=== PATIENT | female | born 1945 | race Caucasian/White ===

== ENCOUNTER 2022-05-07 07:25 | Emergency (ER) | payer MEDICARE, SELFPAY ==
[2022-05-07] VITALS (12 sets, daily range): BP systolic 123–164; BP diastolic 76–128; PULSE 70–85; RESP 15–21; TEMP 36.8; O2SAT 98–100
--- NOTE | ~2022-05-07 | CT_ITS ---
EXAMINATION: CT brain wo con DATE: 05/07/2022 08:07 INDICATION: Altered mental status. TECHNIQUE: Computed tomography (CT) of the head was performed without intravenous contrast. The mA wa s adjusted according to patient size. Iterative reconstruction technique was employed. The dose-lengt h product was 605.33 mGy-cm. COMPARISON: None FINDINGS: There is a small old infarct in right cerebellum. There is a 2.2 cm mass in left parietal o ccipital region with surrounding vasogenic edema. There is an old infarct in the right basal ganglia. There are scattered areas of low attenuation in the cerebral white matter. There is mild mucosal thi ckening in the paranasal sinuses. There is sclerosis of the shelley of left sphenoid sinus, consistent with chronic sinusitis. The mastoid air cells are normal. There are likely changes of ocular lens rep lacement surgeries. IMPRESSION: 1. 2.2 cm mass in left parietal occipital region, consistent with metastatic disease versus glioblast oz. 2. 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 3. Mild nonspecific cerebral white matter disease, which likely represents chronic small vessel ische lars disease. Reviewed, dictated and finalized at location A. IMPRESSION: 1. 2.2 cm mass in left parietal occipital region, consistent with metastatic di sease versus glioblastoma. 2. 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 3. Mild nonspecific cerebral white matter disease, which likely represents dry house tender perla small vessel ischemic disease.
--- NOTE | ~2022-05-07 | XR_ITS ---
EXAMINATION: XR chest 2V DATE: 05/07/2022 08:58 INDICATION: Confusion. TECHNIQUE: Frontal and lateral views of the chest were obtained. COMPARISON: None. FINDINGS: There is a mass in left lung lower lobe. No pleural effusion or pneumothorax. The heart siz e is normal. IMPRESSION: 1. Mass in left lung lower lobe, consistent with primary bronchogenic carcinoma. Chest CT is recommen ded. Reviewed, dictated and finalized at location A. IMPRESSION: 1. Mass in left lung lower lobe, consistent with primary bronchogenic carcinoma . Chest CT is recommended.
--- NOTE | ~2022-05-07 | CT_ITS ---
EXAMINATION:CT diagnostic chest w con DATE: 05/07/2022 09:39 INDICATION: Lung mass. TECHNIQUE: Computed tomography (CT) of the chest was performed with 75 mL Omnipaque 300 intravenous c ontrast. Automated exposure control and iterative reconstruction technique were employed. The dose-le ngth product (DLP) was 138.80 mGy-cm. COMPARISON: Chest 2 views 05/07/2022 FINDINGS: There is mild scarring at the lung apices. There is mild atelectasis bilaterally. There is a 5.2 x 4.5 cm mass in left lung lower lobe. There is a 4 mm nodule in left lower lobe. Calcified pul monary nodules and calcified right hilar lymph nodes are consistent with old granulomatous disease. T here are no pathologically enlarged lymph nodes. There is cortical thinning of the kidneys. 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 There is moderate thoracic spondylosis. IMPRESSION: 1. 5.2 x 4.5 cm mass in left lung lower lobe, consistent with primary bronchogenic carcinoma. CT-guid ed biopsy is recommended. 2. 4 mm nodule in left lung lower lobe, which may be granulomatous disease or metastatic disease. Reviewed, dictated and finalized at location A. IMPRESSION: 1. 5.2 x 4.5 cm mass in left lung lower lobe, consistent with primary bronchoge perla carcinoma. CT-guided biopsy is recommended. 2. 4 mm nodule in left lung lower lobe, which may be granulomatous disease or m etastatic disease.
--- NOTE | 2022-05-07 07:36 | PC.NURSE ---
pt comes in today with daughter with increased confusion and forgetful since 3 months. Daughter states she was sick and since she has noted downhill in patient memory.
--- NOTE | 2022-05-07 07:52 | ECG_ITS ---
Measurements Intervals [place] Rate: 68 P: 52 HI: 189 QRS: -13 QRSD: 91 T: 6 QT: 329 QTc: 351 Interpretive Statements SINUS RHYTHM INCOMPLETE RIGHT BUNDLE BRANCH BLOCK BORDERLINE T WAVE ABNORMALITY- ANT/INF LEADS BASELINE ARTIFACT- I, II, III, AVR, V1 BORDERLINE ECG Electronically Signed On 05-07-2022 8:33:30 CDT by Johnny Dias D.O.
--- NOTE | 2022-05-07 07:53 | ED.GENADULT ---
HPI - General Adult General Chief complaint: Neuro Symptoms/Deficit Stated complaint: confusion Time Seen by Provider: 05/07/22 07:42 History of Present Illness HPI narrative: 76-year-old female presents emergency room accompanied by her daughter. She comes in secondary to some degree of confusion. This has been going on for approximately 1-1/2 months and she is already seen her primary care physician has a referral to be seen at [facility] by their department neurology. The appointment is scheduled in the future. Examples of today is that she was looking for her phone which was sitting right beside her. She was looking for the light switch which was right in front of her. She has problems and finding the words in order to articulate what she is seeing or thinking. She has no focal weakness to her arms or legs. She is able ambulate with any difficulty. She not have any slurred speech is just trying to find the right words to come out. It seems that is gotten worse here lately so they came emergency room for evaluation. She denies any chest pain or shortness of breath. No cough congestion. No chills or fevers. Related Data Home Medications Medication Instructions Recorded Confirmed bimatoprost 0.01 % eye drops 2 drop ophthalmic (eye) DAILY 10/13/19 05/04/22 (Shin) Allergies Allergy/AdvReac Type Severity Reaction Status Date / Time No Known Allergies Allergy Verified 05/04/22 11:24 Review of Systems Review of Systems: CONSTITUTIONAL: Denies fever, chills, or sweats. EYES: Denies visual changes, redness, or discharge. ENT: Denies rhinorrhea, congestion, sore throat, or otalgia. CARDIOVASCULAR: Denies chest pain, palpitations, or edema. RESPIRATORY: Denies cough or dyspnea. GASTROINTESTINAL: Denies abdominal pain, nausea, vomiting, or diarrhea. GENITOURINARY: Denies dysuria or hematuria. SKIN: Denies rash or itching. MUSCULOSKELETAL: Denies back pain, joint pain, or myalgia. NEUROLOGIC: Denies headache, numbness, or weakness. As per HPI problems with her memory PSYCHIATRIC: Denies anxiety or depression. FOR[facility]LY [facility] Past Medical History Medical History Essential (primary) hypertension Glaucoma Memory loss Other hyperlipidemia Family History Family History Other Cerebrovascular accident Diabetes mellitus Family history of malignant neoplasm of breast in first degree relative Social History Social History Smoking status: Never smoker Second hand tobacco smoke exposure: No Alcohol intake: current Substance use: never Substance use type: does not use Gender identity (if verbalized by the patient): Female Sexual Orientation (if Verbalized by the Patient): Straight or Heterosexual Spiritual care concerns: No Agree to blood products: Yes Exam Narrative: APPEARANCE: Well appearing, no pain or distress, well-nourished. Head normocephalic and atraumatic. EYES: PERRLA/EOMI, conjunctivae very clear. NOSE: Normal with no drainage EARS:TMS clear Radha Davis, with good light reflex. THROAT: Pharynx clear, no exudate. NECK: Supple. No adenopathy, no masses. RESPIRATORY: Airway patent, respirations nonlabored. Clear to auscultation bilaterally, no rales, rhonchi, wheezing. CARDIOVASCULAR: Regular rate and rhythm without murmurs, rubs, or gallops. ABDOMINAL: Soft, nontender, nondistended, no hepatosplenomegaly Musculoskeletal: Moves all extremities. Strength/ROM intact, No edema, No calf tenderness. NEURO: Alert. Cranial nerves II through XII intact. Normal gait. Good coordination. Nonfocal examination. Patient can recall her birthdate. She knows her address. She knows where she was born. SKIN:: Warm, dry. Normal Color PSYCHIATRIC: Normal affect/mood, normal interaction Course Vital Signs Vital signs: Vital Signs Temper
[2022-05-07 07:57] LABS: Basophils Absolute Auto 0.1 K/mm3 (0.0-0.1); Basophils Percent Auto 0.5 % (0.2-1.2); Eosinophils Absolute Auto 0.1 K/mm3 (0-0.3); Eosinophils Percent Auto 1.1 % (0-4.4); Hematocrit 39.7 % (37.0-47.0); Immature Granulocyte Absolute 0.04 K/mm3 (0.00-0.031); Immature Granulocyte Percent A 0.4 % (0-0.5); Lymphocytes Absolute Auto 1.86 K/mm3 (0.9-3.2); Lymphocytes Percent Auto 19.6 % (18.3-44.2); Mean Corpuscular HGB Conc 35.3 g/dl (32-36); Mean Corpuscular Hemoglobin 30.4 pg (26-34); Mean Corpuscular Volume 86.3 fl (80-100); Mean Platelet Volume 8.9 fl (7.4-10.4); Monocytes Absolute Auto 0.8 K/mm3 (0.1-0.6); Monocytes Percent Auto 8.9 % (2.6-8.5); Neutrophils Absolute Auto 6.6 K/mm3 (1.3-6.7); Neutrophils Percent Auto 69.5 % (45.5-73.1); Platelet Count Result 444 k/mm3 (150-375); Red Cell Distribution Width 12.2 % (11.5-14.5); White Blood Count 9.5 K/mm3 (4.5-10.0)
[2022-05-07 08:08] LABS: Alanine Aminotransferase 17 U/L (6-35); Albumin Level 4.6 g/dL (3.5-5.1); Alkaline Phosphatase 93 U/L (38-126); Anion Gap 11 mmol/L (8-16); Aspartate Amino Transferase 28 U/L (14-36); Bilirubin,Total 0.8 mg/dL (0.2-1.3); Blood Urea Nitrogen 10 mg/dL (7-17); Calcium 9.7 mg/dL (8.4-10.2); Carbon Dioxide 27 mmol/L (22-30); Chloride 89 mmol/L (98-107); Estimated CRCL calculation 65 ml/min; Estimated Glomerular Filt Rate > 60; Glucose 113 mg/dL (65-110); Sodium 127 mmol/L (137-145)
[2022-05-07 08:54] LABS: Appearance Urine Clear (Clear); Bilirubin Urine Negative (Negative); Blood Urine Negative (Negative); Color Urine Yellow (Yellow); Glucose Urine UA Negative (Negative); Ketones Urine Negative (Negative); Leukocyte Esterase Ur Negative LEU/UL (Negative); Nitrate Urine Negative (Negative); Protein Urine Negative (Negative); Specific Grav Ur 1.015 (1.001-1.035); Urobilinogen Urine 0.2 mg/dL (<2.0)
[2022-05-07] MEDS: POTASSIUM CHLORIDE 20 MEQ PACKET (FOR LIQUID) 40 MEQ PO (09:02)
[2022-05-07 09:04] LABS: Add Urine Microscopic? NO
== END 2022-05-07 10:45 | disposition home or self-care (01) ==
PROVIDERS: Emergency Provider Emergency Medicine; PCP Family Medicine
DX: R91.8 Other nonspecific abnormal finding of lung field (principal); G93.89 Other specified disorders of brain; I10 Essential (primary) hypertension; H40.9 Unspecified glaucoma; E78.49 Other hyperlipidemia; I45.10 Unspecified right bundle-branch block; R94.31 Abnormal electrocardiogram [ECG] [EKG]
CPT/HCPCS: 36415; 70450; 71046; 71260; 80053; 81003; 85025; 93005; 99284; A9270; Q9967

== ENCOUNTER 2022-05-15 11:53 | Outpatient (CLI) | payer MEDICARE, SELFPAY ==
--- NOTE | ~2022-05-15 | MR_ITS ---
EXAMINATION: MR brain/brain stem wo/w con DATE: 05/15/2022 12:34 INDICATION: Brain mass. TECHNIQUE: Magnetic resonance imaging (MRI) of the brain and brainstem was performed without and with 12 mL MultiHance intravenous contrast. COMPARISON: Head CT 05/07/2022 FINDINGS: There are scattered areas of nonspecific increased T2-weighted signal intensity in the cere bral white matter and izabela. There is an old infarct in right cerebellum. There is a 2.0 cm mass in le ft proximal region with surrounding vasogenic edema. There is no acute ischemic infarct or intracrani al hemorrhage. The ventricles are normal in size. There is mild mucosal thickening in sphenoid sinus. There are likely changes of ocular lens replacement surgeries. The mastoid air cells are normal. IMPRESSION: 1. 2.0 cm enhancing mass in left parietal occipital region, consistent with metastatic disease. 2. Old infarct in right cerebellum. 3. Mild nonspecific cerebral white matter disease, which likely represents chronic small vessel ische lars disease. Reviewed, dictated and finalized at location A. IMPRESSION: 1. 2.0 cm enhancing mass in left parietal occipital region, consistent with met astatic disease. 2. Old infarct in right cerebellum. 3. Mild nonspecific cerebral white matter disease, which likely represents port patrol officer perla small vessel ischemic disease.
== END 2022-05-15 11:54 | disposition home or self-care (01) ==
PROVIDERS: PCP Family Medicine; Visit Provider Internal Medicine Hematology & Oncology
DX: G93.89 Other specified disorders of brain (principal); R93.0 Abnormal findings on diagnostic imaging of skull and head, not elsewhere classified
CPT/HCPCS: 70553; A9577

== ENCOUNTER 2022-05-16 01:50 | Outpatient (CLI) | payer MEDICARE, SELFPAY ==
[2022-05-10 11:39] VITALS: BMI 21.0
--- NOTE | 2022-05-14 09:53 | PC.NURSE ---
Pre Radiology instructions Report to the Outpatient Waiting Room, entrance under the green pavilion located off [facility], at time __0900 on date __05/16/22 . Procedure Time: ___1100 . One visitor will be allowed to accompany the patient into the hospital. The visitor will be instructed to remain with patient at all times or leave the building. We will allow the visitor to come back to the postoperative area when patient is ready. You and your visitor will be asked a series of questions to screen for COVID 19 for your protection. A mask is required within the hospital. Patients are to have no food or drink 6 hours prior to procedure time Driving will be restricted after the procedure, you must have a person to drive you home. Labs will be drawn in preop area and once reviewed, you will be taken to radiology area for procedure. When the procedure is completed, you will be taken to outpatient where you will be monitored for several hours. You may have one visitor in this area. Other than holding anti-coagulants, patient may take other medication(s) as scheduled. Prior to your appointment date patients are instructed to hold anti-coagulants after discussing with ordering provider to stop. If unable to discontinue anti-coagulants please notify radiologist. No aspirin or warfarin (Coumadin) for 7 days prior to the procedure. No clopidogrel (Plavix), ticagrelor (Brilinta), prasugrel (Effient) or dabigatran (Pradaxa) for 5 days prior to the procedure. No rivaroxaban (Xarelto), apixaban (Eliquis), dipyridamole (Aggrenox or Persantine) or cilostazol (Pletal) for 2 days prior to the procedure. Medications to discontinue per physician: ASP STOPPED 05/08/22 Date to take last dose: Please leave all valuables, including medications, at home the day of procedure. The hospital will not accept responsibility for valuables. Wear comfortable, loose fitting clothing. Follow any additional instructions given to you from ordering provider. Telephone instructions given to ____PT and asked if any additional questions and then verbalized understanding. Patient advised to call scheduling provider office or registration scheduling [phone] if any additional questions.
[2022-05-16] VITALS (13 sets, daily range): BP systolic 126–150; BP diastolic 67–96; PULSE 58–76; RESP 14–18; TEMP 36.2; O2SAT 98–100
--- NOTE | ~2022-05-16 | XR_ITS ---
EXAMINATION: XR chest 1V portable DATE: 05/16/2022 12:04 INDICATION: Left lung mass status post percutaneous biopsy. TECHNIQUE: A single frontal view of the chest was obtained. COMPARISON: Chest single view at 11:12 AM FINDINGS: There is a mass in left lung lower lobe. There is a small left pneumothorax. No pleural eff usion. The heart size is normal. IMPRESSION: 1. Left lung lower lobe mass suspicious for primary bronchogenic carcinoma. 2. Stable small left pneumothorax. Reviewed, dictated and finalized at location A.
--- NOTE | ~2022-05-16 | CT_ITS ---
. EXAMINATION: CT biopsy lung w/imaging DATE: 05/16/2022 11:10 INDICATION: Left lung mass. TECHNIQUE: The procedure including the risks, benefits, and alternatives and possibility of chest tub e placement were discussed with the patient. Risks discussed included infection, hemorrhage, approxim ately 1/3 risk of pneumothorax, approximately 1/10 risk of pneumothorax severe enough to warrant ches t tube placement, and rarely . The patient understood the risks and agreed to proceed. The patie nt was placed prone. The skin overlying the left chest was prepped and draped in sterile fashion. A nesthetic was administered with 1% lidocaine subcutaneously. A 19 gauge outer needle was advanced un barbara CT guidance to the lesion of interest. A 20 gauge core biopsy needle was then used to obtain 3 co re biopsy specimens. The needle was removed and the entry site was cleaned and dressed. The mA was ad justed according to patient size. Iterative reconstruction technique was employed. The dose-length pr oduct was 107.61 mGy-cm. There were no immediate complications. FINDINGS: CT images demonstrate the outer needle tip adjacent to a 5.2 x 4.5 cm mass in left lung low er lobe. The following images demonstrate a small left pneumothorax. IMPRESSION: 1. CT-guided core needle biopsy of a mass in left lung lower lobe. Reviewed, dictated and finalized at location A.
--- NOTE | ~2022-05-16 | XR_ITS ---
EXAMINATION: XR chest 1V portable DATE: 05/16/2022 14:08 INDICATION: Left lung mass status post percutaneous biopsy. TECHNIQUE: A single frontal view of the chest was obtained. COMPARISON: Chest single view at 12 00 p.m. FINDINGS: There is a mass in left lung lower lobe. No pleural effusion. There is a small left pneumot horax. The heart size is normal. IMPRESSION: 1. Mass in left lung lower lobe suspicious for primary bronchogenic carcinoma. 2. Stable small left pneumothorax. Reviewed, dictated and finalized at location A.
--- NOTE | ~2022-05-16 | XR_ITS ---
XR chest 1V DATE: 05/16/2022 11:15 INDICATION: Post CT guided percutaneous lung biopsy TECHNIQUE: AP chest COMPARISON: None FINDINGS: Up to approximately 1 cm left apical pneumothorax. Large left lower lobe pulmonary mass lesion is again noted. No pulmonary infiltrate or consolidation, pleural effusion or pulmonary vascular congestion is noted otherwise. Normal heart size. Mild aortic unfolding. No hilar or mediastinal enlargement. IMPRESSION: Slight left apical pneumothorax following CT-guided percutaneous needle biopsy of left lo wer lobe mass Reviewed, dictated and finalized at location B. IMPRESSION: Slight left apical pneumothorax following CT-guided percutaneous ne edle biopsy of left lower lobe mass
[2022-05-16 10:03] LABS: Prothrombin Time 12.8 Seconds (11.1-14.7)
== END 2022-05-16 14:48 | disposition home or self-care (01) ==
PROVIDERS: PCP Family Medicine; Visit Provider Radiology Diagnostic Radiology
PROC: BB24ZZZ Computerized Tomography (CT Scan) of Bilateral Lungs (ICD-10-PCS; CPT 32408; principal; 2022-05-16 11:00)
DX: C34.92 Malignant neoplasm of unspecified part of left bronchus or lung (principal); Z51.81 Encounter for therapeutic drug level monitoring; Z79.899 Other long term (current) drug therapy
CPT/HCPCS: 32408; 36415; 71045; 85610; 88305; 88342

== ENCOUNTER 2022-05-17 02:42 | Outpatient (CLI) | payer MEDICARE, SELFPAY ==
--- NOTE | ~2022-05-17 | PE_ITS ---
EXAMINATION: PET skull to mid thigh DATE: 05/17/2022 12:54 INDICATION: Lung mass. TECHNIQUE: Blood glucose level was 123 mg/dL. 8.317 mCi of 18-fluorodeoxyglucose (18-FDG) was adminis tered i.v. Low dose computed tomography (CT) images were acquired from the base of the brain to the p roximal thighs for attenuation correction and anatomic localization. Automated exposure control was e mployed. Dose-length product (DLP) was 402 mGy-cm. Positron emission tomography (PET) images were acq uired in the same distribution. COMPARISON: Chest CT 05/07/2022 FINDINGS: Head/neck: There is a mass in left parietal occipital region of the brain with increased activity. Th ere is increased activity in the oral cavity, oropharynx, major salivary glands, and glottis without abnormal CT correlate, likely physiologic. There are no pathologically enlarged lymph nodes. Chest: Calcified right lung nodules and calcified right hilar lymph nodes are consistent with old gra nulomatous disease. There is mild scarring at right lung apex. There is a small left pneumothorax. Th ere is a 5.0 x 4.7 cm mass involving left lower lobe and left upper lobe with maximum SUV of 11.3. Th ere is mild atelectasis in left lower lobe. The heart size is normal. There are coronary artery calci fications. There are calcifications of aortic valve. No pericardial effusion. There is increased acti vity in bone marrow without abnormal CT correlate, likely bone marrow stimulation. Abdomen/pelvis/proximal thighs: The liver, gallbladder, spleen, pancreas, adrenal glands, and kidneys are normal. There are no dilated loops of bowel. There is diverticulosis of the colon without eviden ce of diverticulitis. There are no pathologically enlarged lymph nodes. There is no free intraperiton eal fluid. There is increased activity in bone marrow without abnormal CT correlate, likely bone jayla ow stimulation. IMPRESSION: 1. 5.0 x 4.7 cm mass in left lung with increased activity, consistent with primary bronchogenic carci noma. 2. Mass in left parietal-occipital region of the brain with increased activity, consistent with metas tatic disease. 3. Small left pneumothorax from yesterday's lung biopsy. Reviewed, dictated and finalized at location A. IMPRESSION: 1. 5.0 x 4.7 cm mass in left lung with increased activity, consistent with prim connie bronchogenic carcinoma. 2. Mass in left parietal-occipital region of the brain with increased activity, consistent with metastatic disease. 3. Small left pneumothorax from yesterday's lung biopsy.
[2022-05-17 11:30] LABS: Glucose Point of Care 123 mg/dl (65-105)
== END 2022-05-17 02:43 | disposition home or self-care (01) ==
PROVIDERS: PCP Family Medicine; Visit Provider Internal Medicine Hematology & Oncology
DX: R91.8 Other nonspecific abnormal finding of lung field (principal); G93.89 Other specified disorders of brain
CPT/HCPCS: 78815; A9552

== ENCOUNTER 2022-06-25 09:45 | Outpatient (CLI) | payer MEDICARE, SELFPAY ==
--- NOTE | 2022-06-25 09:57 | ECHO_ITS ---
Patient Info Name: Raven Leslie Age: 77 years : 1945 Gender: Female Ht: 66 in Wt: 126 lbs BSA: 1.63 m2 HR: 74 bpm BP: 121 / 83 mmHg Technical Quality: Good Exam Date: 06/25/2022 10:22 AM Exam Location: [facility] Patient Status: Outpatient Admit Date: 06/25/2022 Staff Ordering Physician: Lucila Velásquez High Speed Warper Tender: Alison Muir RDCS Attending Provider: Lucila Velásquez Referring Physician: Christen MUSA; Exam Type: CA echo doppler color flow Study Info Indications R01.1 - Cardiac murmur, unspecified Complete two-dimensional, color flow and Doppler transthoracic echocardiogram is performed. Summary 1. Complete two-dimensional, color flow and Doppler transthoracic echocardiogram is performed. 2. Left ventricular chamber dimension is normal. 3. Left ventricular systolic function is normal, estimated at 65-70%. 4. The left ventricular diastolic function is grade I diastolic dysfunction. 5. E/e' 10 is mildly elevated. 6. Global longitudinal strain is abnormal at -15.5%. 7. There is severe aortic valve sclerosis. 8. There is moderate aortic valve stenosis with a peak velocity of 260 cm/s, mean gradient of 17 mmHg, and aortic valve area of 1.1 cm2. 9. No pulmonary hypertension, estimated pulmonary arterial systolic pressure is 33 mmHg. Left Ventricle E/e' 10 is mildly elevated. Global longitudinal strain is abnormal at -15.5%. Left ventricular chamber dimension is normal. Left ventricular systolic function is normal, estimated at 65-70%. The left ventricular diastolic function is grade I diastolic dysfunction. Right Ventricle Right ventricular systolic function is normal and with normal TAPSE 1.7 cm. Right ventricular chamber dimension is normal. Left Atria Left atrial chamber dimension is normal. Right Atria Right atrial chamber dimension is normal. Aortic Valve The aortic valve is trileaflet. There is severe aortic valve sclerosis. There is moderate aortic valve stenosis with a peak velocity of 260 cm/s, mean gradient of 17 mmHg, and aortic valve area of 1.1 cm2. There is no aortic valve regurgitation. Pulmonic Valve There is no pulmonic regurgitation. Mitral Valve There is no mitral valve stenosis. There is no mitral valve regurgitation. Tricuspid Valve There is no tricuspid valve regurgitation. No pulmonary hypertension, estimated pulmonary arterial systolic pressure is 33 mmHg. Pericardium/Pleural There is no pericardial effusion. Inferior Vena Cava Normal inferior vena cava with >50% collapse upon inspiration consistent with normal right atrial pressure, 5 mmHg. Aorta The aortic root size at the sinus of Valsalva is normal. Left Ventricular Outflow Tract Name Value Normal LVOT 2D LVOT Diameter 1.9 cm LVOT Doppler LVOT Peak Gradient 4 mmHg LVOT Mean Gradient 2 mmHg LVOT VTI 22 cm LVOT VTI/AV VTI Ratio 0.4 LVOT Stroke Volume 64 ml LVOT CO 4.6 l/min
== END 2022-06-25 09:46 | disposition home or self-care (01) ==
LOC: ANHCARD 09:46
PROVIDERS: PCP Family Medicine; Visit Provider Physician Assistant Medical
DX: R01.1 Cardiac murmur, unspecified (principal); I35.0 Nonrheumatic aortic (valve) stenosis
CPT/HCPCS: 93306

== ENCOUNTER 2023-06-03 13:30 | Outpatient (CLI) | payer MEDICARE, SELFPAY ==
--- NOTE | 2023-06-03 13:40 | ECHO_ITS ---
Patient Info Name: Raven Leslie Age: 77 years : 1945 Gender: Female Ht: 63 in Wt: 130 lbs BSA: 1.63 m2 HR: 63 bpm BP: 148 / 82 mmHg Heart Rhythm: Sinus Rhythm Technical Quality: Good Exam Date: 06/03/2023 1:56 PM Exam Location: [facility] Patient Status: Outpatient Admit Date: 06/03/2023 Staff Ordering Physician: Johnny Dias DO Forensic Scientist: Amisha Colon RDCS Attending Provider: Johnny Dias DO Referring Physician: Arun FLOWERS; Exam Type: CA echo doppler color flow Study Info Indications - non rheumatic aortic valve stenosis Complete two-dimensional, color flow and Doppler transthoracic echocardiogram is performed. Summary 1. Complete two-dimensional, color flow and Doppler transthoracic echocardiogram is performed. 2. Left ventricular chamber dimension is normal. 3. Left ventricular systolic function is normal, estimated at 60-65%. 4. There is mild concentric increased left ventricular wall thickness. 5. The left ventricular diastolic function is grade II diastolic dysfunction. 6. E/e' 15 is elevated. 7. Global longitudinal strain is normal at -20.5%. 8. Left atrial chamber dimension is moderately enlarged. 9. There is moderate aortic valve sclerosis. 10. There is moderate aortic valve stenosis with a peak velocity of 332 cm/s, mean gradient of 26 mmHg, and aortic valve area of 1.1 cm2. 11. There is mild mitral valve regurgitation. 12. There is mild tricuspid valve regurgitation. 13. No pulmonary hypertension, estimated pulmonary arterial systolic pressure is 34 mmHg. 14. There is trace pulmonic regurgitation. Left Ventricle E/e' 15 is elevated. Global longitudinal strain is normal at -20.5%. Left ventricular chamber dimension is normal. Left ventricular systolic function is normal, estimated at 60-65%. There is mild concentric increased left ventricular wall thickness. The left ventricular diastolic function is grade II diastolic dysfunction. Right Ventricle Right ventricular chamber dimension is normal. Right ventricular systolic function is normal. Left Atria Left atrial chamber dimension is moderately enlarged. Right Atria Right atrial chamber dimension is normal. Aortic Valve The aortic valve is trileaflet. There is moderate aortic valve sclerosis. There is moderate aortic valve stenosis with a peak velocity of 332 cm/s, mean gradient of 26 mmHg, and aortic valve area of 1.1 cm2. There is no aortic valve regurgitation. Pulmonic Valve There is trace pulmonic regurgitation. Mitral Valve There is no mitral valve stenosis. There is mild mitral valve regurgitation. Tricuspid Valve There is mild tricuspid valve regurgitation. No pulmonary hypertension, estimated pulmonary arterial systolic pressure is 34 mmHg. Pericardium/Pleural There is no pericardial effusion. Inferior Vena Cava Normal inferior vena cava with >50% collapse upon inspiration consistent with normal right atrial pressure, 5 mmHg. Aorta The aortic root size at the sinus of Valsalva is normal. Left Ventricular Outflow Tract Name Value Normal LVOT 2D LVOT Diameter 2.0 cm LVOT Doppler LVOT Peak Gradient 5 mmHg LVOT Mean Gradient 3 mmHg
== END 2023-06-03 13:31 | disposition home or self-care (01) ==
LOC: ANHCARD 13:30
PROVIDERS: PCP Family Medicine; Visit Provider Internal Medicine Cardiovascular Disease
DX: I35.0 Nonrheumatic aortic (valve) stenosis (principal)
CPT/HCPCS: 93306

== ENCOUNTER 2024-06-25 09:26 | Outpatient (CLI) | payer MEDICARE, SELFPAY ==
--- NOTE | 2024-06-25 09:49 | ECHO_ITS ---
Patient Info Name: Raven Leslie Age: 79 years : 1945 Gender: Female Ht: 63 in Wt: 140 lbs BSA: 1.69 m2 HR: 58 bpm BP: 144 / 80 mmHg Technical Quality: Good Exam Date: 06/25/2024 9:58 AM Exam Location: Echo Lab Patient Status: Outpatient Admit Date: 06/25/2024 Staff Ordering Physician: Johnny Dias DO Levelman: Edenilson Bardales RDCS Attending Provider: Johnny Dias DO Referring Physician: Arun FLOWERS; Exam Type: CA echo doppler color flow Study Info Indications I35.0 - Nonrheumatic aortic (valve) stenosis Complete two-dimensional, color flow and Doppler transthoracic echocardiogram is performed. Summary 1. Complete two-dimensional, color flow and Doppler transthoracic echocardiogram is performed. 2. Left ventricular chamber dimension is normal. 3. Left ventricular systolic function is normal, estimated at 65-70%. 4. The left ventricular diastolic function is grade I diastolic dysfunction. 5. E/e' 16 is elevated. 6. Left atrial chamber dimension is mildly enlarged. 7. There is severe aortic valve sclerosis. 8. There is moderate to severe aortic valve stenosis with a peak velocity of 402 cm/s, mean gradient of 35 mmHg, and aortic valve area of 1.0 cm2. 9. The mitral valve has moderately calcified annulus. 10. There is mild mitral valve regurgitation. 11. There is trace tricuspid valve regurgitation. 12. No pulmonary hypertension, estimated pulmonary arterial systolic pressure is 26 mmHg. 13. There is trace pulmonic regurgitation. 14. Small atheroma in anterior aortic root. Left Ventricle E/e' 16 is elevated. Left ventricular chamber dimension is normal. Left ventricular systolic function is normal, estimated at 65-70%. The left ventricular diastolic function is grade I diastolic dysfunction. Right Ventricle Right ventricular systolic function is normal and with normal TAPSE 2.0 cm. Right ventricular chamber dimension is normal. Left Atria Left atrial chamber dimension is mildly enlarged. Right Atria Right atrial chamber dimension is normal. Aortic Valve The aortic valve is trileaflet. There is severe aortic valve sclerosis. There is moderate to severe aortic valve stenosis with a peak velocity of 402 cm/s, mean gradient of 35 mmHg, and aortic valve area of 1.0 cm2. There is no aortic valve regurgitation. Pulmonic Valve There is trace pulmonic regurgitation. Mitral Valve The mitral valve has moderately calcified annulus. There is no mitral valve stenosis. There is mild mitral valve regurgitation. Tricuspid Valve There is trace tricuspid valve regurgitation. No pulmonary hypertension, estimated pulmonary arterial systolic pressure is 26 mmHg. Pericardium/Pleural There is no pericardial effusion. Inferior Vena Cava Normal inferior vena cava with >50% collapse upon inspiration consistent with normal right atrial pressure, 5 mmHg. Aorta Small atheroma in anterior aortic root. The aortic root size at the sinus of Valsalva is normal. Left Ventricular Outflow Tract Name Value Normal LVOT 2D LVOT Diameter 2.0 cm LVOT Doppler LVOT Peak Gradient 6 mmHg LVOT Mean Gradient 3 mmHg LVOT VTI
== END 2024-06-25 09:27 | disposition home or self-care (01) ==
PROVIDERS: PCP Family Medicine; Visit Provider Internal Medicine Cardiovascular Disease
DX: I35.0 Nonrheumatic aortic (valve) stenosis (principal); I51.89 Other ill-defined heart diseases; I35.8 Other nonrheumatic aortic valve disorders; I34.81 Nonrheumatic mitral (valve) annulus calcification; I34.0 Nonrheumatic mitral (valve) insufficiency; I70.0 Atherosclerosis of aorta
CPT/HCPCS: 93306

== ENCOUNTER 2025-07-08 12:22 | Outpatient (CLI) | payer MEDICARE, SELFPAY ==
--- OUTSIDE RECORDS SUMMARY | 2003-12-10 09:45 | XMS_ITS | Continuity of Care Document ---
Author Organization [facility] Address [address] [place] [address] Phone Care Team Providers Care Belt Maker Helper Name Role Phone Fam Mejia DO Unavailable Unavailable Advance Directives Directive Yes / No Effective Date File Name No Information Encounters Encounter Description Practice Location Reason(s) For Visit Diagnoses Date Provider Providers Copied on Encounter [facility], [address], [place], [place], [id number], [place] tel:[phone] [facility] No Information Jackie Bolanos. [address], [place], [address], [place]. tel:[phone] Family History Family Member Type Diagnosis Age At Onset No Information Payers Payer name Insurance type Covered constitution party ID Authoriza tion(s) No Information Social History Type Description Quantity Date Captured Comments Sex Female Smoking Status No Information Chief Complaint And Reason For Visit No Information Reason For Referral Reason For Referral No Information History Of Present Illness Encounter Date Complaint History Of Prese nt Illness No Information Functional Status Date Functional Assessmen t No Information Instructions Date Instruction Additional Infor mation No Information Assessments Type Assessment Date No Information Patient Care Teams Name Effective Dates (start - stop) Status Members No Information
--- NOTE | 2025-07-08 12:36 | ECHO_ITS ---
Patient Info Name: Raven Leslie Age: 80 years : 1945 Gender: Female Ht: 66 in Wt: 130 lbs BSA: 1.66 m2 HR: 65 bpm BP: 165 / 87 mmHg Technical Quality: Good Exam Date: 07/08/2025 12:45 PM Patient Status: O Admit Date: 07/08/2025 Exam Type: CA echo doppler color flow Complete two-dimensional, color flow and Doppler transthoracic echocardiogram is performed. Income Tax Adjuster: David Calderón III Attending Provider: Johnny Dias DO Summary 1. Complete two-dimensional, color flow and Doppler transthoracic echocardiogram is performed. 2. Left ventricular chamber dimension is normal. 3. Left ventricular systolic function is normal, estimated at 65-70. 4. The left ventricular diastolic function is grade I diastolic dysfunction. 5. Ventricular septum is sigmoid shaped. 6. E/e' 15 is elevated. 7. Left atrial chamber dimension is moderately enlarged. 8. Right atrial chamber dimension is mildly enlarged. 9. There is severe aortic valve sclerosis. 10. There is severe aortic valve stenosis with a peak velocity of 440 cm/s, mean gradient of 43 mmHg, and aortic valve area of 0.8 cm2. 11. There is mild aortic valve regurgitation. 12. The mitral valve has a mildly calcified annulus. 13. There is mild mitral valve regurgitation. 14. There is trace tricuspid valve regurgitation. 15. No pulmonary hypertension, estimated pulmonary arterial systolic pressure is 16 mmHg. 16. Small atheroma in anterior aortic root. Left Ventricle E/e' 15 is elevated. Left ventricular chamber dimension is normal. Left ventricular systolic function is normal, estimated at 65-70. The left ventricular diastolic function is grade I diastolic dysfunction. Ventricular septum is sigmoid shaped. Right Ventricle Right ventricular chamber dimension is normal. Right ventricular systolic function is normal and with normal TAPSE 2.2 cm. Left Atria Left atrial chamber dimension is moderately enlarged. Right Atria Right atrial chamber dimension is mildly enlarged. Aortic Valve The aortic valve is trileaflet. There is severe aortic valve sclerosis. There is severe aortic valve stenosis with a peak velocity of 440 cm/s, mean gradient of 43 mmHg, and aortic valve area of 0.8 cm2. There is mild aortic valve regurgitation. Pulmonic Valve There is no pulmonic regurgitation. Mitral Valve The mitral valve has a mildly calcified annulus. There is no mitral valve stenosis. There is mild mitral valve regurgitation. Tricuspid Valve There is trace tricuspid valve regurgitation. No pulmonary hypertension, estimated pulmonary arterial systolic pressure is 16 mmHg. Pericardium/Pleural There is no pericardial effusion. Inferior Vena Cava Normal inferior vena cava with >50% collapse upon inspiration consistent with normal right atrial pressure, 5 mmHg. Aorta The aortic root size at the sinus of Valsalva is normal. Small atheroma in anterior aortic root. Left Ventricular Outflow Tract Name Value Normal LVOT 2D LVOT Diameter 2.0 cm LVOT Doppler LVOT Peak Velocity 110 cm/s LVOT Peak Gradient 5 mmHg LVOT Mean Gradient 2 mmHg LVOT VTI 28 cm LVOT VTI/AV VTI Ratio 0.3 LVOT Stroke Volume 90 ml LVOT CO 12.6 l/min LVOT CI 7.6 l/min/m2 Pulmonic Valve Name Value Normal PV Doppler PV Peak Velocity 174 cm/s PV Peak Gradient 12 mmHg PV Mean Gradient 5 mmHg Mitral Valve Name Value Normal MV Doppler MV Peak Gradient 4 mmHg MV Mean Gradient 2 mmHg MV Area (Cont Eq VTI) 2.7 cm2 MV Regurgitation Doppler MR Peak Gradient 98 mmHg MV Diastolic Function MV E Peak Velocity 80 cm/s MV A Peak Velocity 107 cm/s MV E/A 0.7 MV Decel Time (PW) 276 ms MV Annular TDI MV E/e' (Septal) 16.8 MV E/e' (Lateral) 14.8 MV E/e' (Average) 15.8 Tricuspid Valve Name Value Normal TV Regurgitation Doppler TR Peak Velocity 167 cm/s TR Peak Gradient 11 mmHg Estimated PAP/RSVP RA Pressure 5 mmHg <=5 PA Systolic Pressure 16 mmHg <36 RV Systolic Pressure 16 mmHg <36 TV Annular TDI TV Lateral Mitzi s' Velocity 16.4 cm/s >=9.5 Aortic Valve Name Value Normal AV Doppler AV Peak Velocity 440 cm/s AV Peak Gradient 77 mmHg AV Mean Gradient 43 mmHg AV VTI 107 cm AV Area (Cont Eq VTI) 0.8 cm2 >=3.0 AV Area (Cont Eq Jorge) 0.8 cm2 AV DI (Jorge) 0.25 AV Regurgitation 2D LVOT Area 3.2 cm2 Ventricles Name Value Normal LV Dimensions 2D/MM IVS Diastolic Thickness (2D) 1.2 cm 0.6-1.0 LVID Diastole (2D) 4.2 cm 3.8-5.2 LVIW Diastolic Thickness (2D) 1.0 cm 0.6-0.9 LVID Systole (2D) 2.9 cm 2.2-3.5 LVOT Diameter 2.0 cm LV Mass (2D Cubed) 153.90 g 67.00-162.00 LV Mass Index (2D Cubed) 93 g/m2 43-95 Relative Wall Thickness (2D) 0.47 <=0.42 LV Fractional Shortening/Ejection Fraction 2D/MM LV Fractional Shortening (2D) 30 % 27-45 LV EF (2D Teichholz) 58 % LV Diastolic Volume (4C MOD) 89 ml LV EF (4C MOD) 69 % LV Diastolic Volume (2C MOD) 75 ml LV EF (2C MOD) 67 % LV Diastolic Volume (BP MOD) 82 ml 46-106 LV Diastolic Volume Index (BP MOD) 50 ml/m2 29-61 LV Systolic Volume (BP MOD) 27 ml 14-42 LV Systolic Volume Index (BP MOD) 16 ml/m2 8-24 LV EF (BP MOD) 67 % 54-74 LV Diastolic Length (4C) 7.2 cm LV Systolic Length (4C) 5.3 cm LV Stroke Volume (4C MOD) 61 ml Atria Name Value Normal LA Dimensions LA Volume (4C A-L) 67 ml LA Volume (BP A-L) 77 ml RA Dimensions RA Systolic Major [place] Length (4C) 5.8 cm 2.2-2.8 RA Area (4C) 19.2 cm2 <=18.0 Report Signatures
--- OUTSIDE RECORDS SUMMARY | 2025-07-08 14:05 | XMS_ITS | Clinical Summary ---
Author Organization [facility] Address [facility] [place] [address] Care Team Providers Care Trans Router Name Role Phone Amanda Monsalve MD Primary Care Provider [phone] Elliot Lopes MD Unavailable [phone] Michael Vital MD Unavailable [phone] Allergies No known active allergies Medications atenoloL (TENORMIN) 50 mg tablet Take 50 mg by mouth daily 05/28/2022 Active quinapriL (ACCUPRIL) 20 mg tablet Take 20 mg by mouth daily 05/24/2022 Active amLODIPine (NORVASC) 5 mg tablet Take 5 mg by mouth daily 05/04/2022 Active aspirin 81 mg enteric coated tablet Take 81 mg by mouth daily Active dexAMETHasone (DECADRON) 4 mg tablet Take 4 mg by mouth 2 (two) times a day 05/28/2022 Active levETIRAcetam (KEPPRA) 500 mg tablet Take 500 mg by mouth every 12 (twelve) hours 05/28/2022 Active brimonidine (ALPHAGAN) 0.2 % ophthalmic solution INSTILL 1 DROP INTO RIGHT EYE TWICE A DAY 03/11/2022 Active dorzolamide-naida oloL (COSOPT) 22.3-6.8 mg/mL ophthalmic solution PLACE 1 DROP INTO BOTH EYES TWICE A DAY DIRECTED 03/06/2022 Active Active Problems Problem Noted Date Diagnosed Date Stage IV adenocarcinoma of lung, left 06/01/2022 Cancer Staging:Clinical stage from 05/17/2022:Stage BAILEY(cT3, cN0, cM1b) - Signed by Simeon Garcia MD on 06/01/2022 Family History Medical History Relation Name Comments No Known Problems Brother No Known Problems Maternal Grandfather No Known Problems Maternal Grandmother Breast cancer Mother No Known Problems Paternal Grandfather No Known Problems Paternal Grandmother No Known Problems Sister Relation Name Status Comments Brother Maternal Grandfather Maternal Grandmother Mother Paternal Grandfather Paternal Grandmother Sister Social History Tobacco Use Types Packs/Day Years Used Date Smoking Tobacco: Former Smokeless Tobacco: Never Personal Safety Answer Date Recorded Getting School Help Needed Not on file 11/01 Comments Unknown Sex and Gender Information Value Date Recorded Sex Assigned at Not on file Legal Sex Female 1:37 PM RN UROLOGY Gender Identity Not on file Sexual Orientation Not on file Obstetrics History Last Filed Vital Signs Vital Sign Reading Time Taken Comments Blood Pressure 150/87 06/04/2022 7:47 AM CDT notified team Pulse 58 06/04/2022 7:47 AM CDT Temperature 36 C (96.8 F) 06/04/2022 7:47 AM CDT Respiratory Rate 16 06/04/2022 7:47 AM CDT Oxygen Saturation 100% 06/04/2022 7:4 7 AM CDT Inhaled Oxygen Concentration - - Weight 58 kg (127 lb 12.8 oz) 7:47 AM CDT Height 164.1 cm (5' 4.61) 06/04/2022 7 :47 AM CDT Body Mass Index 21.53 06/04/2022 7:47 AM CDT Plan of Treatment Health Maintenance Due Date Last Done Comments Depression Screening 1945 Fall Risk Assessment 1945 Hepatitis C Screening 1945 Osteoporosis Screening-Bone Density Scan 1945 Hepatitis B Screening 1965 Pneumococcal vaccine 65+ (1 of 2 - PCV) 1966 Zoster Vaccine (1 of 2) 1966 Well Visit 65+ 2012 DTaP/Tdap/Td Vaccine (2 - Td or Tdap) 06/03/202504/2015 Covid-19 Vaccine ( season) 2025 10/11/2021, 01/07/2021, 12/10/2020 Influenza Vaccine (#1) 2025 Insurance MEDICARE COMMERCIAL GENERIC [facility] [employer] COMMERCIAL GENERIC MEDICARE Care Teams Trans Router Relationship Specialty Start Date End Date Amanda Monsalve MD PCP - General Family Medicine 05/29/22 Elliot Lopes MD Medical Oncologist Hematology 06/01/22 Michael Vital MD Medical Oncologist/[employer] Medical Oncology 06/01/22
--- OUTSIDE RECORDS SUMMARY | 2025-07-08 14:05 | XMS_ITS | Clinical Summary ---
Author Organization [facility] Jessenia Benitez Address [address] [place] [address] Care Team Providers Care Picker Feeder Name Role Phone Amanda Monsalve MD Primary Care Provider [phone] Allergies No known active allergies Medications atenoloL (TENORMIN) 50 mg tablet Take 50 mg by mouth daily. 03/20/20 22 Active amLODIPine (NORVASC) 5 mg tablet Take 5 mg by mouth daily. 05/04/20 22 Active brimonidine (ALPHAGAN) 0.2 % solution INSTILL 1 DROP INTO RIGHT EYE TWICE A DAY 03/11/20 22 Active dorzolamide-leslie loL (COSOPT) 22.3-6.8 mg/mL solution PLACE 1 DROP INTO BOTH EYES TWICE A DAY DIRECTED 03/06/20 22 Active aspirin (ECOTRIN EC) 81 mg Tablet, Delayed Release (E.C.) Take 81 mg by mouth daily. Active lisinopril-hydro CHLOROthiazide (ZESTORETIC) 10-12.5 mg tablet Take 1 Tablet by mouth daily. 10/11/20 22 Active dexAMETHasone (DECADRON) 4 mg tablet Take 2 Tablets (8 mg) by mouth one time for 1 dose. 10 Tablet 12/10/19 23 Active fluocinonide (LIDEX) 0.05 % OintmentIndicati ons:Malignant neoplasm of left lung, unspecified part of lung (CMS/HCC),Metast asis to brain (CMS/HCC),Encoun ter for chemotherapy management,Other eczema Apply to affected area 2 times daily. 30 Gram 1 01/06/20 25 Active alectinib (Alecensa) 150 mg capsuleIndicatio ns:Malignant neoplasm of left lung, unspecified part of lung (CMS/HCC),Metast asis to brain (CMS/HCC) TAKE 3 CAPSULES(450 MG) BY MOUTH TWICE DAILY WITH MEALS 240 Capsule 06/22/20 25 Active alectinib (Alecensa) 150 mg capsuleIndicatio ns:Malignant neoplasm of left lung, unspecified part of lung (CMS/HCC),Metast asis to brain (CMS/HCC) Take 3 Capsules (450 mg) by mouth 2 times daily with meals. 240 Capsule 05/18/20 25 025 Discontinued Active Problems Problem Noted Date Diagnosed Date Anemia due to chemotherapy 12/31/2022 Hypokalemia 08/06/2022 Non-small cell lung cancer metastatic to brain 0 05/23/2022 Lung mass 05/14/2022 Brain mass 05/14/2022 Encounters Date Type Department Care Team Description 06/22/2025 Refill [facility] Oncology [facility] [place], [facility] [address] [place] [phone] Martha Pearl MD Malignant neoplasm of left lung, unspecified part of lung (CMS/HCC); 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) 06/01/2025 External Device Data STL ABSTRACTION Provider, Abstract 05/28/2025 Results Follow-Up [facility] Radiation Therapy [address] [place] [address] Anjel Mercado MD MRI BRAIN W WO CONTRAST 05/28/2025 Orders Only [facility] Radiation Therapy [address] [place] [address] Anjel Mercado MD 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) (Primary Dx) 05/27/2025 9:30 AM CDT Office Visit [facility] [address] [place] [address] Martha Pearl MD Malignant neoplasm of left lung, unspecified part of lung (CMS/HCC) (Primary Dx); 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); Encounter for chemotherapy management 05/27/2025 6:30 AM CDT - 05/27/2025 11:59 PM CDT Hospital Encounter [facility] Laboratory Services [facility] [address] [place] [phone] Martha Pearl MD Discharge Disposition: Home or Self Care 05/27/2025 6:30 AM CDT - 05/27/2025 11:59 PM CDT Hospital Encounter [facility] MRI [address] [place] [address] Anjel Mercado MD Discharge Disposition: Home or Self Care 05/27/2025 6:28 AM CDT - 05/27/2025 11:59 PM CDT Hospital Encounter [facility] Nuclear Medicine [address] [place] [phone] [id number] Martha Pearl MD Discharge Disposition: Home or Self Care 05/20/2025 Telephone [facility] Oncology [facility] [place], [facility] [address] [place] [address] Martha Pearl MD Alecensa reorder 05/18/2025 Orders Only [facility] Oncology [facility] [place] [address] [place] [address] Sebastian Parker, RN Malignant neoplasm of left lung, unspecified part of lung (CMS/HCC); 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) 05/13/2025 Refill [facility] Oncology [facility] [place] [address] [place] [address] Martha Pearl MD Malignant neoplasm of left lung, unspecified part of lung (CMS/HCC); 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) 05/12/2025 External Device Data STL ABSTRACTION Provider, Abstract 05/11/2025 External Device Data STL ABSTRACTION Provider, Abstract 04/12/2025 Refill [facility] Oncology [facility] [place] [address] [place] [address] Martha Pearl MD Malignant neoplasm of left lung, unspecified part of lung (CMS/HCC); 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 No 05/16/2023 Comments No Sex and Gender Information Value Date Recorded Sex Assigned at Not on file Legal Sex Female 3:27 PM CDT Gender Identity Not on file Sexual Orientation Not on file Occupation Industry Job Start Date Job End Date [employer] Not on file Not on file Not on file Last Filed Vital Signs Vital Sign Reading Time Taken Comments Blood Pressure 130/62 05/27/2025 8:53 AM CDT Pulse 84 05/27/2025 8:53 AM CDT Temperature 35.7 C (96.2 F) 05/27/2025 8:53 AM CDT Respiratory Rate 18 05/27/2025 8:53 AM CDT Oxygen Saturation 99% 01/05/2025 11:17 AM CDT Inhaled Oxygen Concentration - - Weight 61.1 kg (134 lb 9.6 oz) 05/27/2025 8:53 A M CDT Height 162.6 cm (5' 4) 05/27/2025 8:53 AM CDT Body Mass Index 23.1 05/27/2025 8:53 AM CDT Plan of Treatment Health Maintenance Due Date Last Done Comments DTAP/TDAP/TD VACCINES (1 - Tdap) 1966 PNEUMOCOCCAL VACCINE 50+ YEARS (1 of 2 - PCV) 06/13/19 66 ZOSTER VACCINE (1 of 2) 1966 OSTEOPOROSIS SCREENING 2012 RSV VACCINE (60+ or ) (1 - 1-dose 75+ series) 2022 INFLUENZA VACCINE (#1) 2025 Procedures Procedure Name Priority Date/Time Associated Diagnosis Comments COMPREHENSIVE METABOLIC PANEL Stat 05/27/2025 8:48 AM CDT Malignant neoplasm of left lung, unspecified part of lung (CMS/HCC) 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) Encounter for chemotherapy management Other eczema CBC WITH DIFFERENTIAL Stat 05/27/2025 8:48 AM CDT Malignant neoplasm of left lung, unspecified part of lung (CMS/HCC) 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 RBC 3.58(L) 3.90 - 4.90 M/uL 05/27/2025 9:00 AM T [facility] HEMOGLOBIN 11.3(L) 11.8 - 14.8 g/dL 05/27/2025 9:00 AM T [facility] HEMATOCRIT 33.1(L) 35.5 - 44.0 % 05/27/2025 9:00 AM T [facility] - [facility] MCV 92.5 82.0 - 99.0 fL 05/27/2025 9:00 AM T [facility] - [facility] MCH 31.6 27.2 - 32.6 pg 05/27/2025 9:00 AM T [facility] MCHC 34.1 31.5 - 35.5 g/dL 05/27/2025 9:00 AM T [facility] RDW 16.0(H) 11.5 - 14.5 % 05/27/2025 9:00 AM T [facility] - [facility] RDW-STDEV 52.5(H) 37.1 - 48.7 fL 05/27/2025 9:00 AM [facility] - [facility] PLATELETS 332 140 - 350 K/uL 05/27/2025 9:00 AM [facility] - . [facility] MPV 9.8 9.3 - 12.4 fL 05/27/2025 9:00 AM [facility] - . [facility] NEUTROPHILS 61 % 05/27/2025 9:00 AM [facility] - . [facility] LYMPHOCYTES 29 % 05/27/2025 9:00 AM [facility] - . [facility] MONOCYTES 7 % 05/27/2025 9:00 AM [facility] - . [facility] EOSINOPHILS 2 % 05/27/2025 9:00 AM [facility] - . [facility] BASOPHILS 1 % 05/27/2025 9:00 AM [facility] - . [facility] IMMATURE GRANULOCYTES 1 % 05/27/2025 9:00 AM [facility] - [facility] Comment:IG (Immature Granulo cyte) count includes Metamyelocytes, Myelocytes, and Promyelocytes NEUTROPHIL ABSOLUTE 5.69 1.90 - 7.00 K/uL 05/27/2025 9:00 AM [facility] - . [facility] LYMPHOCYTE ABSOLUTE 2.68 0.70 - 4.50 K/uL 05/27/2025 9:00 AM [facility] - . [facility] MONOCYTE ABSOLUTE 0.68 0.10 - 1.30 K/uL 05/27/2025 9:00 AM [facility] - . [facility] EOSINOPHIL ABSOLUTE 0.14 0.00 - 0.70 K/uL 05/27/2025 9:00 AM [facility] - . [facility] BASOPHILS ABSOLUTE 0.09 0.00 - 0.20 K/uL 05/27/2025 9:00 AM [facility] - . [facility] IMMATURE GRANULOCYTES ABSOLUTE 0.05(H) 0.00 - 0.03 K/uL 05/27/2025 9:00 AM [facility] - . [facility] Blood Venipuncture / Unknown 05/27/2025 8:48 AM CDT 05/27/2025 8:58 AM CDT us Martha Pearl MD HEMATOLOGY ORDERABLES Final R esult [facility] - [facility] NAOMI# [id number] [address] [facility] [place] [address] [place] [address] * (ABNORMAL) COMPREHENSIVE METABOLIC PANEL (05/27/2025 8:48 AM CDT) SODIUM 139 136 - 145 mmol/L 05/27/2025 9:27 AM CDT [facility] - [facility] POTASSIUM 4.7 3.5 - 5.0 mmol/L 05/27/2025 9:27 AM T [facility] - [facility] CHLORIDE 104 98 - 107 mmol/L 05/27/2025 9:27 AM T [facility] - . [facility] CO2 26 22 - 29 mmol/L 05/27/2025 9:27 AM T [facility] - [facility] CALCIUM 9.6 8.6 - 10.2 mg/dL 05/27/2025 9:27 AM T [facility] - [facility] BUN 10 8 - 23 mg/dL 05/27/2025 9:27 AM T [facility] - [facility] CREATININE 0.62 0.51 - 0.95 mg/dL 05/27/2025 9:27 AM T [facility] - [facility] Comment:The GFR result is no t clinically significant on patients <18 or >70 years of age. GLUCOSE 108(H) 74 - 99 mg/dL 05/27/2025 9:27 AM T [facility] TOTAL PROTEIN 6.9 6.7 - 8.6 g/dL 05/27/2025 9:27 AM CDT [facility] - . [facility] ALBUMIN 4.4 3.5 - 5.2 g/dL 05/27/2025 9:27 AM T [facility] - [facility] BILIRUBIN TOTAL 1.2(H) 0.0 - 1.1 mg/dL 05/27/2025 9:27 AM T [facility] - [facility] ALKALINE PHOSPHATASE 162(H) 35 - 104 U/L 05/27/2025 9:27 AM CDT [facility] AST 31 <33 U/L 05/27/2025 9:27 AM T [facility] ALT 8 <34 U/L 05/27/2025 9:27 AM CDT [facility] GFR >60 mL/min/1.7 3 sq meter 05/27/2025 9:27 AM T [facility] Comment:eGFR calculated with 2020 CKD-EPI equation. Vegetarian diet, extremely high or low muscle mass, and may affect results. Cystatin C with Glomerular Filtration Rate is a suitable alternative for these patients. ANION GAP 9 8 - 16 mmol/L 05/27/2025 9:27 AM T [facility] Blood Venipuncture / Unknown 05/27/2025 8:48 AM CDT 05/27/2025 9:04 AM CDT Narrative [facility] - 05/27/2025 9:27 AM CDT Samples containing indocyanine green cause interferences on Total and/or Direct Bilirubin and must not be measured. us Martha Pearl MD CHEMISTRY ORDERABLES Final Re sult [facility]# [id number] [address] [facility] [place] [address] * MRI BRAIN W WO CONTRAST (05/27/2025 8:37 AM CDT) Anatomical Region Laterality Modality Head Magnetic Resonan ce 05/27/2025 8:39 AM CDT Impressions 05/27/2025 9:20 AM CDT IMPRESSION: 1. Stable enhancing lesion in the left parietal occipital junction with unchanged chronic hemosiderin staining. No evidence of disease progression DICTATION LOCATION: Location 1 - [facility] Narrative 05/27/2025 9:20 AM CDT MRI OF THE BRAIN, WITH AND WITHOUT IV CONTRAST DATE: 05/27/2025 8:37 AM HISTORY: Brain metastases, assess treatment response. 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) COMPARISON: 01/05/2025 TECHNIQUE: Routine brain imaging protocol was used with and without intravenous contrast administration. CONTRAST: GADOTERIDOL 279.3 MG/ML INTRAVENOUS SOLUTION Given:11 mL BRAIN FINDINGS: Diffusion sequence: No evidence of acute infarction. Susceptibility sequence: Unchanged parenchymal hemosiderin staining in the left parietal occipital junction Parenchyma: Unchanged tissue loss in the right cerebellum. Unchanged patchy T2 hyperintensity in the white matter. Ventricles/Cisterns: Normal ventricular size. Symmetrical cisterns. Contrast sequences: Unchanged 7 mm focus of enhancement in the left parietal occipital junction Extra-axial:No extra-axial mass. Arterial flow voids: Grossly intact flow voids at distal vertebral arteries and internal carotid arteries Venous flow voids: Limited evaluation showing no suspicious findings of venous thrombosis. Paranasal sinuses/Mastoids: Normal aeration of paranasal sinuses and mastoid air cells. Midline structures: Normally developed midline structures. Additional: None Procedure Note Fermin Roy MD - 05/27/2025 MRI OF THE BRAIN, WITH AND WITHOUT IV CONTRAST DATE: 05/27/2025 8:37 AM HISTORY: Brain metastases, assess treatment response. 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) COMPARISON: 01/05/2025 TECHNIQUE: Routine brain imaging protocol was used with and without intravenous contrast administration. CONTRAST: GADOTERIDOL 279.3 MG/ML INTRAVENOUS SOLUTION Given:11 mL BRAIN FINDINGS: Diffusion sequence: No evidence of acute infarction. Susceptibility sequence: Unchanged parenchymal hemosiderin staining in the left parietal occipital junction Parenchyma: Unchanged tissue loss in the right cerebellum. Unchanged patchy T2 hyperintensity in the white matter. Ventricles/Cisterns: Normal ventricular size. Symmetrical cisterns. Contrast sequences: Unchanged 7 mm focus of enhancement in the left parietal occipital junction Extra-axial:No extra-axial mass. Arterial flow voids: Grossly intact flow voids at distal vertebral arteries and internal carotid arteries Venous flow voids: Limited evaluation showing no suspicious findings of venous thrombosis. Paranasal sinuses/Mastoids: Normal aeration of paranasal sinuses and mastoid air cells. Midline structures: Normally developed midline structures. Additional: None IMPRESSION: 1. Stable enhancing lesion in the left parietal occipital junction with unchanged chronic hemosiderin staining. No evidence of disease progression DICTATION LOCATION: Location - [facility] Anjel Mercado MD MR ORDERABLES Final Result * PET TUMOR OR INFECTION IMG W CT SKB MDTH (05/27/2025 7:57 AM CDT) Anatomical Region Laterality Modality Positron Emissio n Tomography (PET) 05/27/2025 7:57 AM CDT Impressions 05/27/2025 8:09 AM CDT IMPRESSION: Negative PET exam. No findings to suggest recurrence of metastatic non-small cell lung cancer. Dictated by Dr. Ronald Kuhn MD DICTATION LOCATION: 05/27/2025 8:09 AM CDT PET/CT IMAGING WITH HARDWARE FUSION Subsequent treatment strategy DATE: 05/27/2025 7:57 AM PRIOR EXAM: PET CT exam 01/05/2025. HISTORY: Stage IV non-small cell lung cancer (primary pulmonary adenocarcinoma) with history of intracranial metastatic disease (left parietal mass). Stereotactic radiotherapy in 2021. CyberKnife therapy in 2022. Ongoing oral immunotherapy. PROCEDURE: Radiopharmaceutical: 18-F FDG Injected activity: 6.31 mCi Injection site: Right antecubital vein Uptake time: 45 minutes Blood glucose: 104 mg/dL. CT scan type: Brain through the knees. CT technique: Noncontrast CT for attenuation correction and anatomic localization. Axial, sagittal, coronal and MIP images reviewed. Maximal SUVs have units of MBq/mL. Aortic blood pool: SUVmax: 3.3 Hepatic parenchyma: SUVmax: 4.2 Scan quality: Excellent. FINDINGS: Significant PET/CT findings: Postradiation fibrotic changes in the perihilar region of the left lower lobe is unchanged from December 2024. No new sites of pulmonary malignancy. No evidence of pathologic adenopathy. No PET findings that would suggest recurrence of intracranial sites of metastatic disease. No hepatic, adrenal or skeletal sites of metastatic disease. Incidental PET/CT findings: Expected patterns of PET activity within brain, extraocular muscles, tonsils, heart, gastric mucosa, scattered throughout the descending colon and excreted by the urinary tract. Inflammatory FDG uptake of both shoulder joints. The breasts are normal. Bilateral intraocular lens implants. Scattered calcifications of the coronary arteries. Left atrial enlargement. Dense calcifications of the aortic valve leaflets. Small calcified pulmonary nodule in the superior segment right lower lobe. Mild centrilobular emphysema. The liver, spleen, pancreas, adrenal glands and kidneys are unremarkable. Scattered calcifications of the infrarenal aorta and iliac arteries. Sigmoid diverticulosis. Procedure Note Ronald Kuhn MD - 05/27/2025 PET/CT IMAGING WITH HARDWARE FUSION Subsequent treatment strategy DATE: 05/27/2025 7:57 AM PRIOR EXAM: PET CT exam 01/05/2025. HISTORY: Stage IV non-small cell lung cancer (primary pulmonary adenocarcinoma) with history of intracranial metastatic disease (left parietal mass). Stereotactic radiotherapy in 2021. CyberKnife therapy in 2022. Ongoing oral immunotherapy. PROCEDURE: Radiopharmaceutical: 18-F FDG Injected activity: 6.31 mCi Injection site: Right antecubital vein Uptake time: 45 minutes Blood glucose: 104 mg/dL. CT scan type: Brain through the knees. CT technique: Noncontrast CT for attenuation correction and anatomic localization. Axial, sagittal, coronal and MIP images reviewed. Maximal SUVs have units of MBq/mL. Aortic blood pool: SUVmax: 3.3 Hepatic parenchyma: SUVmax: 4.2 Scan quality: Excellent. FINDINGS: Significant PET/CT findings: Postradiation fibrotic changes in the perihilar region of the left lower lobe is unchanged from December 2024. No new sites of pulmonary malignancy. No evidence of pathologic adenopathy. No PET findings that would suggest recurrence of intracranial sites of metastatic disease. No hepatic, adrenal or skeletal sites of metastatic disease. Incidental PET/CT findings: Expected patterns of PET activity within brain, extraocular muscles, tonsils, heart, gastric mucosa, scattered throughout the descending colon and excreted by the urinary tract. Inflammatory FDG uptake of both shoulder joints. The breasts are normal. Bilateral intraocular lens implants. Scattered calcifications of the coronary arteries. Left atrial enlargement. Dense calcifications of the aortic valve leaflets. Small calcified pulmonary nodule in the superior segment right lower lobe. Mild centrilobular emphysema. The liver, spleen, pancreas, adrenal glands and kidneys are unremarkable. Scattered calcifications of the infrarenal aorta and iliac arteries. Sigmoid diverticulosis. IMPRESSION: Negative PET exam. No findings to suggest recurrence of metastatic non-small cell lung cancer. Dictated by Dr. Ronald Kuhn MD DICTATION LOCATION: 1 us Martha Pearl MD PE ORDERABLES Final Result from Last 3 Months Insurance [employer] MEDICARE SUPP AESSI MEDICARE PART A AND B RX [employer] Medicare Part D Care Teams Picker Feeder Relationship Specialty Start Date End Date Amanda Monsalve MD [address] [place] [id number] PCP - General Family Practice 05/14/22
--- OUTSIDE RECORDS SUMMARY | 2025-07-08 14:05 | XMS_ITS | Encounter Summary ---
[facility] Organization [facility] Address [address] [place] [address] Care Team Providers Care Treasurer Name Role Phone Amanda Monsalve MD Primary Care Provider [phone] Encounter Details Date Type Department Care Team (Late st Contact Info) Description 05/28/2025 Results Follow-Up [facility] Radiation Therapy [address] [place] [address] Anjel Mercado MD [address] [place] [address] MRI BRAIN W WO CONTRAST Social History Tobacco Use Types Packs/Day Years Used Date Smoking Tobacco: Former Smokeless Tobacco: Never Alcohol Use Standard Drinks/Week Comments Yes 0 [...] file Not on file Not on file documented as of this encounter Plan of Treatment Not on file documented as of this encounter Visit Diagnoses Not on filedocumented in this encounter Care Teams Treasurer Relationship Specialty Start Date End Date Amanda Monsalve MD [address] [place] [address] PCP - General Family Practice 05/14/22 documented as of this encounter
--- OUTSIDE RECORDS SUMMARY | 2025-07-08 14:05 | XMS_ITS | Encounter Summary ---
Author Organization [facility] Address [address] [place] [address] Phone Care Team Providers Care Director Foundation Name Role Phone Amanda Monsalve MD Unavailable [phone] Amanda Monsalve MD Primary Care Provider [phone] Elliot Lopes MD Unavailable [phone] Michael Vital MD Unavailable [phone] Encounter Details Date Type Department Care Team (Late st Contact Info) Description 05/28/2022 Telephone [facility] Oncology [facility] 7[address] [place] [address] [place] [address] Rosa Price Social History Tobacco Use Types Packs/Day Years Used Date Smoking Tobacco: Never Assessed Comments Unknown Sex and Gender Information Value Date Recorded Sex Assigned at Not on file Legal Sex Female 1:37 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
--- OUTSIDE RECORDS SUMMARY | 2025-07-08 14:05 | XMS_ITS | Clinical Summary ---
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 Gender Identity Not on file Sexual Orientation Not on file Plan of Treatment Health Maintenance Due Date Last Done Comments Hepatitis C 1965 DTaP, Tdap and Td Vaccines ( 1 - Tdap) 1966 Pneumococcal Vaccine: 50+ Ye ars (1 of 1 - PCV) 1997 Zoster Vaccines (1 of 2) 1997 Dexa Scan (General) 2012 RSV Immunization or 60+ Years (1 - 1-dose 75+ series) 2022 COVID-19 Vaccine (2023-2 5 season) 2025 Meningococcal B Vaccine Aged Out No l onger eligible based on patient's age to complete this topic Meningococcal Vaccine Aged Out No yany kathryn eligible based on patient's age to complete this topic RSV Immunizations Under 20 Months Aged Out No longer eligible based on patient's age to complete this topic
--- OUTSIDE RECORDS SUMMARY | 2025-07-08 14:05 | XMS_ITS ---
[facility] Address [address] [address] Care Team Providers Care Supervisor Contact Lens Name Role Phone Amanda Monsalve MD Primary Care Provider [phone] Active Problems Problem Noted Date Diagnosed Date Anemia due to chemotherapy 12/31/2022 Hypokalemia 08/06/2022 Non-small cell lung cancer metastatic to brain 0 05/23/2022 Lung mass 05/14/2022 Brain mass 05/14/2022 Current Treatment and Therapy Plans No current plan information found. Past Treatment and Therapy Plans ONCOLOGY THERAPY PLAN Plan Name Start Date Discontinue Date Treatment Medications Discontinue Reason Plan Provider BLANK SUPPORTIVE CARE THERAPY PLAN 08/06/2022 10/02/2023 No medications scheduled. Therapy Complete Martha Pearl MD Lifetime Dose Tracking * Chemical Lifetime Dose Automatic Entry Manual Entr y Effective Dose 3.3 mSv 3.3 mSv 0 mSv Total DLP 233.8 DLP 233.8 DLP 0 DLP CTDIvol Max 5.95 mGy 5.95 mGy 0 mGy
== END 2025-07-08 12:23 | disposition home or self-care (01) ==
LOC: ANHCARD 12:22
PROVIDERS: PCP Family Medicine; Visit Provider Internal Medicine Cardiovascular Disease
DX: I35.0 Nonrheumatic aortic (valve) stenosis (principal); I08.0 Rheumatic disorders of both mitral and aortic valves; I35.8 Other nonrheumatic aortic valve disorders; I70.0 Atherosclerosis of aorta
CPT/HCPCS: 93306

== ENCOUNTER 2025-10-08 08:32 | Outpatient (CLI) | payer MEDICARE, SELFPAY ==
--- NOTE | ~2025-10-08 | NM_ITS ---
EXAMINATION: NM jaylin stress w perfusion DATE: 10/08/2025 11:08 INDICATION: Preop TECHNIQUE: Rest images were obtained following intravenous administration of 9.98 mCi Tc99m tetrofosmin (Myoview). The patient was infused intravenously with Lexiscan (regadenoson). Then, 29.9 mCi Tc99m tetrofosmin (Myoview) was administered intravenously, and stress images were obtained. Data was stephanie nstructed into short axis and horizontal and vertical long axis SPECT images. Gated SPECT images were also obtained. COMPARISON: None. FINDINGS: There is no definite reversible or fixed perfusion abnormality to suggest ischemia or infarction. Slight diffuse photopenia in the lateral wall noted on stress images in the HLA sequence, however no defect appreciated on the short axis images. There is no segmental wall motion abnormality. Left ventricular ejection fraction measures 79%. IMPRESSION: 1. Mild photopenia in the lateral left ventricular wall on HLA images not confirmed on short axis images, and probably artifactual. No definite ischemia or infarct. 2. Normal left ventricular ejection fraction measuring 79%. Reviewed, dictated and finalized at location A. COORDINATOR IMPRESSION: 1. Mild photopenia in the lateral left ventricular wall on HLA images not confi rmed on short axis images, and probably artifactual. No definite ischemia or in farct. 2. Normal left ventricular ejection fraction measuring 79%.
--- NOTE | 2025-10-08 08:49 | EST_ITS ---
Patient Info Name: Raven Leslie Age: 80 years : 1945 Gender: Female Ht: 63 in Wt: 130 lbs BSA: 1.63 m2 HR: 60 bpm BP: 157 / 77 mmHg Exam Date: 10/08/2025 8:49 AM Patient Status: O Admit Date: 10/08/2025 Exam Type: CA stress jaylin w NM A regadenoson stress test was performed. Staff Referring Physician: Johnny Dias DO Attending Provider: Johnny Dias DO Exercise Technologist: Meme Pendleton Exercise Physician: Johnny Dias DO Summary 1. 1. Negative lexiscan stress test for ischemic ST changes by ECG criteria. 2. 2. Baseline hypertension. 3. 3. Nuclear scan to follow and will be reported separately. Please correlate with it. 4. 4. Patient informed of the above results. Protocol: Lexiscan Stress ECG Details Stage: REST Duration (min): 1 min : 44 sec HR (bpm): 60 SBP (mmHg): 157 DBP (mmHg): 77 Stage: REST Duration (min): 12 min : 45 sec HR (bpm): 57 SBP (mmHg): 157 DBP (mmHg): 77 Stage: STAGE 1 Duration (min): 0 min : 59 sec HR (bpm): 72 SBP (mmHg): 155 DBP (mmHg): 68 Stage: RECOVERY Duration (min): 1 min : 0 sec HR (bpm): 78 SBP (mmHg): 155 DBP (mmHg): 68 Stage: RECOVERY Duration (min): 2 min : 0 sec HR (bpm): 76 SBP (mmHg): 155 DBP (mmHg): 68 Stage: RECOVERY Duration (min): 3 min : 0 sec HR (bpm): 70 SBP (mmHg): 145 DBP (mmHg): 68 Stage: RECOVERY Duration (min): 4 min : 0 sec HR (bpm): 68 SBP (mmHg): 145 DBP (mmHg): 68 Stage: RECOVERY Duration (min): 5 min : 0 sec HR (bpm): 69 SBP (mmHg): 142 DBP (mmHg): 68 Stage: RECOVERY Duration (min): 5 min : 3 sec HR (bpm): 69 SBP (mmHg): 142 DBP (mmHg): 68 Rest HR: 57 bpm Peak HR: 78 bpm Rest Sys BP: 157 mmHg Peak Sys BP: 155 mmHg Max Pred HR: 142 bpm % Max Pred HR: 55 % Target HR: 121 bpm Max RPP: 12,090 bpm*mmHg Termination Reason: Completed protocol Cardiac Symptoms: Shortness of breath Total Time: 1 min : 0 sec Rest Charles BP: 77 mmHg Peak Charles BP: 68 mmHg Total Dose: 0.4 mg Resting ECG Sinus bradycardia. Stress ECG No ST changes. Arrhythmias None. Report Signatures
== END 2025-10-08 08:33 | disposition home or self-care (01) ==
PROVIDERS: PCP Family Medicine; Visit Provider Internal Medicine Cardiovascular Disease
DX: Z01.810 Encounter for preprocedural cardiovascular examination (principal); R93.1 Abnormal findings on diagnostic imaging of heart and coronary circulation
CPT/HCPCS: 78452; 93017; A9502; J2785